=== PATIENT | female | born 1980 | race Caucasian/White ===

== ENCOUNTER 2016-09-08 20:41 | Inpatient (IN) | payer MEDICAID ==
[~2016-09-08] VITALS: Ht 175.3 cm; Wt 86.4 kg
[~2016-09-08 20:41] MED LIST: ZIPR40CA2 PO
[2016-09-08 21:40] LABS: BASOPHILS # (AUTO) 0.06 K/uL (0.00-0.20); BASOPHILS % (AUTO) 0.6 % (0.0-2.0); EOSINOPHILS # (AUTO) 0.27 K/uL (0.00-0.70); HEMATOCRIT 37.4 % (36-46); HEMOGLOBIN 12.3 g/dL (12.0-16.0); LYMPHOCYTES # (AUTO) 4.1 K/uL (1.0-4.8); LYMPHOCYTES % (AUTO) 39.5 % (22.0-44.0); MEAN CORPUSCULAR HEMOGLOBIN 25.3 pg (26.0-34.0); MEAN CORPUSCULAR VOLUME 77 fL (80-100); MONOCYTES # (AUTO) 0.5 K/uL (0.1-1.0); MONOCYTES % (AUTO) 4.4 % (2.0-9.0); NEUTROPHILS # (AUTO) 5.4 K/uL (1.8-7.7); NEUTROPHILS % (AUTO) 52.9 % (40.0-70.0); PLATELET COUNT (AUTO) 250 K/uL (150-450); RED BLOOD CELL COUNT(AUTO) 4.87 MIL/uL (4.00-5.20); RED CELL DISTRIBUTION WIDTH 17.3 % (11.5-14.5); WHITE BLOOD COUNT (AUTO) 10.3 K/uL (4.5-11.0)
[2016-09-08 21:46] LABS: ANION GAP 8 mmol/L (8-16); CALCIUM, TOTAL 8.7 mg/dL (8.8-10.5); CARBON DIOXIDE 28 mmol/L (22-29); CHLORIDE 103 mmol/L (98-107); CREATININE 0.81 mg/dL (0.60-1.30); GLOMERULAR FILTR. RATE CALC > 60 mL/min (>60); POTASSIUM 3.7 mmol/L (3.5-5.1); SODIUM SERUM 139 mmol/L (136-145); UREA NITROGEN, BLOOD 9 mg/dL (7-18)
[2016-09-08 21:52] LABS: ALANINE AMINOTRANSFERASE 22 U/L (12-78); ALBUMIN 3.4 g/dL (3.4-5.0); ASPARTATE AMINOTRANSFERASE 12 U/L (15-37); BILIRUBIN,TOTAL 0.2 mg/dL (0.1-1.0); TOTAL PROTEIN, SERUM 7.4 g/dL (6.4-8.2)
[2016-09-08 22:24] LABS: RBC MORPHOLOGY COMMENT ABNORMAL RBC MORPH
[2016-09-09] MEDS ORDERED: LORazepam 2 MG TABLET PO ONE (02:15)
[2016-09-09] MEDS ORDERED: HALOPERIDOL 5 MG TABLET PO PRN (03:15)
[2016-09-09] MEDS ORDERED: ZOLPIDEM TARTRATE 10 MG TABLET PO PRN (03:15)
[2016-09-09 05:31] VITALS: BP 101/59
[2016-09-09] MEDS: LORazepam 2 MG TABLET PO PRN (09:50)
[2016-09-09] MEDS ORDERED: INFLUENZA VIRUS VACCINE QVS 2016-17 (3YR+)/PF 60 MCG/0.5 ML SYRINGE IM ONE (10:15)
[2016-09-09 16:05] VITALS: BP 127/66
[2016-09-09] MEDS: ZIPRASIDONE HCL 40 MG CAPSULE PO SCH (16:14)
[2016-09-09] MEDS ORDERED: IBUPROFEN 400 MG TABLET PO PRN (18:15)
[2016-09-09] MEDS ORDERED: ACETAMINOPHEN 325 MG TABLET PO PRN (18:15)
[2016-09-10 06:28] VITALS: BP 104/60
[2016-09-10] MEDS: ZIPRASIDONE HCL 40 MG CAPSULE PO SCH ×3 (06:49→20:05)
[2016-09-10 08:16] VITALS: BP 100/63
[2016-09-10 09:07] LABS: CHOL/HDL RATIO 2.1 (3.9-5.7); THYROID STIMULATING HORMONE 0.54 uIU/mL (0.36-3.74)
[2016-09-10] MEDS: LORazepam 2 MG TABLET PO PRN (14:06)
[2016-09-10 16:17] VITALS: BP 109/52
[2016-09-11 06:10] VITALS: BP 108/63
[2016-09-11 08:32] VITALS: BP 113/58
[2016-09-11] MEDS: LORazepam 2 MG TABLET PO PRN ×2 (13:57→18:02)
[2016-09-11 16:12] VITALS: BP 125/69
[2016-09-11] MEDS: DOCUSATE SODIUM 100 MG CAPSULE PO SCH (17:00)
[2016-09-11] MEDS: ZIPRASIDONE HCL 40 MG CAPSULE PO SCH (20:18)
[2016-09-12 04:16] VITALS: BP 124/70
[2016-09-12 06:24] VITALS: BP 121/72
[2016-09-12] MEDS: LORazepam 2 MG TABLET PO PRN ×2 (06:26→12:18)
[2016-09-12] MEDS: DOCUSATE SODIUM 100 MG CAPSULE PO SCH (08:27)
[2016-09-12 08:49] VITALS: BP 111/70
[2016-09-12] MEDS ORDERED: NICOTINE 14 MG/24 HOUR PATCH TD SCH (09:00)
[2016-09-12] MEDS ORDERED: DSS100 PO (12:17)
== END 2016-09-12 14:32 | disposition home or self-care (01) | DRG 750 ==
LOC: EEVIPCON 20:44 → EMS 20:44 → B3A 09-09 03:45
PROVIDERS: ADMIT Psychiatry & Neurology Child & Adolescent Psychiatry; ATTEND Psychiatry & Neurology Child & Adolescent Psychiatry
DX: F25.1 Schizoaffective disorder, depressive type (principal); R45.851 Suicidal ideations; E83.51 Hypocalcemia; F41.9 Anxiety disorder, unspecified; F19.10 Other psychoactive substance abuse, uncomplicated; Z59.0 Homelessness; Z28.21 Immunization not carried out because of patient refusal
CPT/HCPCS: 83036; 84443; 99285; G0480

== ENCOUNTER 2016-09-25 18:58 | Emergency (ER) | payer MEDICAID ==
[~2016-09-25] VITALS: Ht 170.2 cm; Wt 86.4 kg
[~2016-09-25 18:58] MED LIST changes: +DSS100 PO
[2016-09-25 20:03] LABS: BASOPHILS % (AUTO) 0.4 % (0.0-2.0); EOSINOPHILS % (AUTO) 0.2 % (1.0-6.0); HEMATOCRIT 37.4 % (36-46); HEMOGLOBIN 12.1 g/dL (12.0-16.0); LYMPHOCYTES # (AUTO) 1.8 K/uL (1.0-4.8); LYMPHOCYTES % (AUTO) 16.5 % (22.0-44.0); MEAN CORPUSCULAR HEMOGLOBIN 25.1 pg (26.0-34.0); MEAN CORPUSCULAR HGB CONC 32.3 G/dL (31.0-37.0); MEAN CORPUSCULAR VOLUME 78 fL (80-100); MONOCYTES # (AUTO) 0.3 K/uL (0.1-1.0); MONOCYTES % (AUTO) 2.9 % (2.0-9.0); NEUTROPHILS # (AUTO) 8.7 K/uL (1.8-7.7); PLATELET COUNT (AUTO) 288 K/uL (150-450); RED BLOOD CELL COUNT(AUTO) 4.81 MIL/uL (4.00-5.20); RED CELL DISTRIBUTION WIDTH 16.6 % (11.5-14.5); WHITE BLOOD COUNT (AUTO) 10.9 K/uL (4.5-11.0)
[2016-09-25] MEDS ORDERED: LORazepam 2 MG TABLET PO ONE (20:15)
[2016-09-25] MEDS ORDERED: ZIPR80CA2 PO (20:18)
[2016-09-25 20:19] LABS: ANION GAP 8 mmol/L (8-16); CALCIUM, TOTAL 8.8 mg/dL (8.8-10.5); CARBON DIOXIDE 27 mmol/L (22-29); CHLORIDE 103 mmol/L (98-107); CREATININE 0.93 mg/dL (0.60-1.30); GLOMERULAR FILTR. RATE CALC > 60 mL/min (>60); POTASSIUM 3.8 mmol/L (3.5-5.1); SODIUM SERUM 138 mmol/L (136-145); UREA NITROGEN, BLOOD 8 mg/dL (7-18)
[2016-09-25 20:25] LABS: ALANINE AMINOTRANSFERASE 20 U/L (12-78); ALBUMIN 3.7 g/dL (3.4-5.0); ASPARTATE AMINOTRANSFERASE 14 U/L (15-37); BILIRUBIN,TOTAL 0.4 mg/dL (0.1-1.0); TOTAL PROTEIN, SERUM 7.9 g/dL (6.4-8.2)
[2016-09-25] MEDS ORDERED: HALOPERIDOL 5 MG TABLET PO ONE (22:30)
[2016-09-25 22:56] VITALS: BP 127/75
== END 2016-09-25 22:57 | disposition home or self-care (01) ==
LOC: EMS 19:00
DX: F25.9 Schizoaffective disorder, unspecified (principal); F32.9 Major depressive disorder, single episode, unspecified; F17.200 Nicotine dependence, unspecified, uncomplicated
CPT/HCPCS: 36415; 80053; 84703; 85025; 99284; 99406; G0480

== ENCOUNTER 2016-09-26 05:33 | Inpatient (IN) | payer MEDICAID ==
[~2016-09-26] VITALS: Ht 175.3 cm; Wt 85.5 kg
[~2016-09-26 05:33] MED LIST changes: +ZIPR80CA2 PO
[2016-09-26 08:13] LABS: BASOPHILS % (AUTO) 0.6 % (0.0-2.0); EOSINOPHILS % (AUTO) 2.8 % (1.0-6.0); HEMATOCRIT 35.9 % (36-46); HEMOGLOBIN 11.7 g/dL (12.0-16.0); LYMPHOCYTES # (AUTO) 2.1 K/uL (1.0-4.8); LYMPHOCYTES % (AUTO) 27.7 % (22.0-44.0); MEAN CORPUSCULAR HEMOGLOBIN 25.5 pg (26.0-34.0); MEAN CORPUSCULAR HGB CONC 32.7 G/dL (31.0-37.0); MEAN CORPUSCULAR VOLUME 78 fL (80-100); MONOCYTES # (AUTO) 0.4 K/uL (0.1-1.0); MONOCYTES % (AUTO) 5.2 % (2.0-9.0); NEUTROPHILS # (AUTO) 4.7 K/uL (1.8-7.7); NEUTROPHILS % (AUTO) 63.7 % (40.0-70.0); PLATELET COUNT (AUTO) 250 K/uL (150-450); RED BLOOD CELL COUNT(AUTO) 4.61 MIL/uL (4.00-5.20); RED CELL DISTRIBUTION WIDTH 16.7 % (11.5-14.5); WHITE BLOOD COUNT (AUTO) 7.4 K/uL (4.5-11.0)
[2016-09-26] MEDS ORDERED: HALOPERIDOL 5 MG TABLET PO PRN (08:15)
[2016-09-26] MEDS ORDERED: ZOLPIDEM TARTRATE 10 MG TABLET PO PRN (08:15)
[2016-09-26 08:23] LABS: ANION GAP 6 mmol/L (8-16); CALCIUM, TOTAL 8.3 mg/dL (8.8-10.5); CARBON DIOXIDE 28 mmol/L (22-29); CHLORIDE 105 mmol/L (98-107); CREATININE 0.86 mg/dL (0.60-1.30); GLOMERULAR FILTR. RATE CALC > 60 mL/min (>60); POTASSIUM 3.7 mmol/L (3.5-5.1); SODIUM SERUM 139 mmol/L (136-145); UREA NITROGEN, BLOOD 5 mg/dL (7-18)
[2016-09-26 08:28] LABS: ALANINE AMINOTRANSFERASE 20 U/L (12-78); ALBUMIN 3.3 g/dL (3.4-5.0); ASPARTATE AMINOTRANSFERASE 12 U/L (15-37); BILIRUBIN,TOTAL 0.5 mg/dL (0.1-1.0); TOTAL PROTEIN, SERUM 7.1 g/dL (6.4-8.2)
[2016-09-26 08:32] LABS: APPEARANCE,URINE CLOUDY (CLEAR); GLUCOSE, URINE (UA) NEGATIVE (NEGATIVE); KETONES,URINE NEGATIVE (NEGATIVE); LEUKOCYTE ESTERASE ,URINE LARGE (NEGATIVE); OCCULT BLOOD,URINE TRACE (NEGATIVE); PH,URINE 7.5 (5.0-8.0); PROTEIN,URINE TRACE (NEGATIVE)
[2016-09-26 08:33] LABS: ADD UA MICROSCOPIC YES
[2016-09-26 08:36] LABS: WBC,URINE >100 /HPF (0-5)
[2016-09-26 08:37] LABS: SQUAMOUS EPITHELIAL CELL,UR Rare /LPF (None Seen)
[2016-09-26] MEDS ORDERED: CefTRIAXone SODIUM 1 GM/VIAL IM ONE (09:15)
[2016-09-26] MEDS ORDERED: LIDOCAINE HCL/PF 1% 2 ML VIAL IM ONE (09:15)
[2016-09-26 12:41] VITALS: BP 138/67
[2016-09-26] MEDS ORDERED: INFLUENZA VIRUS VACCINE QVS 2016-17 (3YR+)/PF 60 MCG/0.5 ML SYRINGE IM ONE (13:30)
[2016-09-26 16:31] VITALS: BP 114/62
[2016-09-26] MEDS ORDERED: ACETAMINOPHEN 325 MG TABLET PO PRN (17:15)
[2016-09-26] MEDS ORDERED: IBUPROFEN 400 MG TABLET PO PRN (17:15)
[2016-09-26] MEDS: CIPROFLOXACIN HCL 500 MG TABLET PO SCH (18:04)
[2016-09-26] MEDS: LORazepam 2 MG TABLET PO PRN (20:47)
[2016-09-27 00:07] VITALS: BP 106/61
[2016-09-27 08:19] LABS: HEMOGLOBIN A1C 4.9 % (4.5-6.2)
[2016-09-27 08:40] LABS: CHOL/HDL RATIO 1.8 (3.9-5.7); THYROID STIMULATING HORMONE 0.72 uIU/mL (0.36-3.74)
[2016-09-27 08:51] VITALS: BP 102/67
[2016-09-27] MEDS: DOCUSATE SODIUM 100 MG CAPSULE PO SCH (09:15)
[2016-09-27] MEDS: CIPROFLOXACIN HCL 500 MG TABLET PO SCH ×2 (09:15→16:58)
[2016-09-27 16:35] VITALS: BP_SYST 100; BP_SYST 115; BP_DIAS 62; BP_DIAS 68
[2016-09-27] MEDS: ZIPRASIDONE HCL 40 MG CAPSULE PO SCH (16:58)
[2016-09-27] MEDS: LORazepam 2 MG TABLET PO PRN (17:27)
[2016-09-28 05:58] VITALS: BP 118/65
[2016-09-28] MEDS: ZIPRASIDONE HCL 40 MG CAPSULE PO SCH ×2 (07:00→16:36)
[2016-09-28 08:57] VITALS: BP 120/68
[2016-09-28] MEDS: CIPROFLOXACIN HCL 500 MG TABLET PO SCH ×2 (10:04→16:36)
[2016-09-28] MEDS: DOCUSATE SODIUM 100 MG CAPSULE PO SCH (10:04)
[2016-09-28] MEDS: LORazepam 2 MG TABLET PO PRN ×2 (13:52→18:39)
[2016-09-28 16:30] VITALS: BP 122/75
[2016-09-29 04:26] VITALS: BP 116/72
[2016-09-29] MEDS: LORazepam 2 MG TABLET PO PRN (04:29)
[2016-09-29] MEDS: ZIPRASIDONE HCL 40 MG CAPSULE PO SCH (06:40)
[2016-09-29 08:39] VITALS: BP 141/84
[2016-09-29] MEDS: CIPROFLOXACIN HCL 500 MG TABLET PO SCH (09:38)
[2016-09-29] MEDS: DOCUSATE SODIUM 100 MG CAPSULE PO SCH (09:38)
[2016-09-29 11:09] VITALS: BP 121/71
[2016-09-29] MEDS ORDERED: CIPR-278 PO (12:30)
[2016-09-29] MEDS ORDERED: ZIPR40CA2 PO (12:30)
== END 2016-09-29 14:00 | disposition home or self-care (01) | DRG 753 ==
LOC: EMS 05:34 → EEVIPCON 05:34 → B2S 09:23
PROVIDERS: ATTEND Psychiatry & Neurology Child & Adolescent Psychiatry
DX: F31.4 Bipolar disorder, current episode depressed, severe, without psychotic features (principal); R45.851 Suicidal ideations; N39.0 Urinary tract infection, site not specified; F12.90 Cannabis use, unspecified, uncomplicated; F10.20 Alcohol dependence, uncomplicated; F15.90 Other stimulant use, unspecified, uncomplicated; Z71.51 Drug abuse counseling and surveillance of drug abuser; Z28.21 Immunization not carried out because of patient refusal; Z79.899 Other long term (current) drug therapy
CPT/HCPCS: 83036; 84443; 87086; 96372; 99285; G0480; J0696; J3490

== ENCOUNTER 2016-09-30 15:56 | Emergency (ER) | payer MEDICAID ==
[~2016-09-30] VITALS: Ht 172.7 cm; Wt 79.5 kg
[~2016-09-30 15:56] MED LIST changes: +CIPR-278 PO; -ZIPR80CA2 PO
[2016-09-30 20:12] LABS: BASOPHILS % (AUTO) 1.7 % (0.0-2.0); EOSINOPHILS % (AUTO) 2.9 % (1.0-6.0); HEMATOCRIT 36.3 % (36-46); LYMPHOCYTES # (AUTO) 3.2 K/uL (1.0-4.8); LYMPHOCYTES % (AUTO) 33.3 % (22.0-44.0); MEAN CORPUSCULAR HEMOGLOBIN 25.7 pg (26.0-34.0); MEAN CORPUSCULAR VOLUME 78 fL (80-100); MONOCYTES # (AUTO) 0.4 K/uL (0.1-1.0); MONOCYTES % (AUTO) 4.3 % (2.0-9.0); NEUTROPHILS # (AUTO) 5.5 K/uL (1.8-7.7); NEUTROPHILS % (AUTO) 57.8 % (40.0-70.0); PLATELET COUNT (AUTO) 253 K/uL (150-450); RED BLOOD CELL COUNT(AUTO) 4.67 MIL/uL (4.00-5.20); RED CELL DISTRIBUTION WIDTH 16.8 % (11.5-14.5); WHITE BLOOD COUNT (AUTO) 9.6 K/uL (4.5-11.0)
[2016-09-30 20:23] LABS: ANION GAP 7 mmol/L (8-16); CALCIUM, TOTAL 9.1 mg/dL (8.8-10.5); CARBON DIOXIDE 29 mmol/L (22-29); CHLORIDE 105 mmol/L (98-107); CREATININE 0.74 mg/dL (0.60-1.30); GLOMERULAR FILTR. RATE CALC > 60 mL/min (>60); POTASSIUM 4.4 mmol/L (3.5-5.1); SODIUM SERUM 141 mmol/L (136-145); UREA NITROGEN, BLOOD 8 mg/dL (7-18)
[2016-09-30 20:29] LABS: ALANINE AMINOTRANSFERASE 27 U/L (12-78); ALBUMIN 3.7 g/dL (3.4-5.0); ASPARTATE AMINOTRANSFERASE 16 U/L (15-37); BILIRUBIN,TOTAL 0.4 mg/dL (0.1-1.0); TOTAL PROTEIN, SERUM 7.5 g/dL (6.4-8.2)
[2016-09-30] MEDS ORDERED: LORazepam 2 MG TABLET PO ONE (23:30)
[2016-09-30] MEDS ORDERED: HALOPERIDOL 5 MG TABLET PO ONE (23:30)
[2016-10-01 02:09] VITALS: BP 121/80
== END 2016-10-01 02:13 | disposition home or self-care (01) ==
LOC: EMS 15:58
DX: F32.9 Major depressive disorder, single episode, unspecified (principal)
CPT/HCPCS: 36415; 80053; 80307; 85025; 99284; G0480

== ENCOUNTER 2016-10-17 18:17 | Inpatient (IN) | payer MEDICAID ==
[~2016-10-17] VITALS: Ht 175.3 cm; Wt 87.1 kg
[2016-10-17] MEDS ORDERED: HALOPERIDOL 5 MG TABLET PO PRN (18:45)
[2016-10-17 18:55] VITALS: BP 122/78
[2016-10-17] MEDS ORDERED: INFLUENZA VIRUS VACCINE QVS 2016-17 (3YR+)/PF 60 MCG/0.5 ML SYRINGE IM ONE (20:00)
[2016-10-18 04:39] VITALS: BP 104/70
[2016-10-18 07:39] LABS: BASOPHILS % (AUTO) 0.4 % (0.0-2.0); EOSINOPHILS % (AUTO) 3.1 % (1.0-6.0); HEMATOCRIT 36.1 % (36-46); HEMOGLOBIN 11.8 g/dL (12.0-16.0); LYMPHOCYTES # (AUTO) 3.8 K/uL (1.0-4.8); LYMPHOCYTES % (AUTO) 47.2 % (22.0-44.0); MEAN CORPUSCULAR HEMOGLOBIN 25.5 pg (26.0-34.0); MEAN CORPUSCULAR HGB CONC 32.8 G/dL (31.0-37.0); MEAN CORPUSCULAR VOLUME 78 fL (80-100); MONOCYTES # (AUTO) 0.3 K/uL (0.1-1.0); MONOCYTES % (AUTO) 4.3 % (2.0-9.0); NEUTROPHILS # (AUTO) 3.6 K/uL (1.8-7.7); PLATELET COUNT (AUTO) 235 K/uL (150-450); RED BLOOD CELL COUNT(AUTO) 4.64 MIL/uL (4.00-5.20); RED CELL DISTRIBUTION WIDTH 16.7 % (11.5-14.5)
[2016-10-18 08:00] VITALS: BP 115/60
[2016-10-18 08:13] LABS: ALANINE AMINOTRANSFERASE 17 U/L (12-78); ALBUMIN 3.3 g/dL (3.4-5.0); ANION GAP 7 mmol/L (8-16); ASPARTATE AMINOTRANSFERASE 12 U/L (15-37); BILIRUBIN,TOTAL 0.4 mg/dL (0.1-1.0); CALCIUM, TOTAL 8.7 mg/dL (8.8-10.5); CARBON DIOXIDE 26 mmol/L (22-29); CHLORIDE 107 mmol/L (98-107); CHOL/HDL RATIO 1.9 (3.9-5.7); CREATININE 0.62 mg/dL (0.60-1.30); GLOMERULAR FILTR. RATE CALC > 60 mL/min (>60); POTASSIUM 4.2 mmol/L (3.5-5.1); SODIUM SERUM 140 mmol/L (136-145); TOTAL PROTEIN, SERUM 6.8 g/dL (6.4-8.2); UREA NITROGEN, BLOOD 7 mg/dL (7-18)
[2016-10-18] MEDS: NICOTINE 21 MG/24 HOUR PATCH TD SCH (08:21)
[2016-10-18] MEDS: LORazepam 2 MG TABLET PO PRN ×2 (08:21→14:50)
[2016-10-18] MEDS ORDERED: PHENAZOPYRIDINE HCL 100 MG TABLET PO PRN (08:30)
[2016-10-18] MEDS ORDERED: ACETAMINOPHEN 650 MG/20.3 ML SOLUTION UDCUP PO PRN (08:30)
[2016-10-18 08:32] LABS: THYROID STIMULATING HORMONE 0.73 uIU/mL (0.36-3.74)
[2016-10-18 16:25] VITALS: BP 125/72
[2016-10-18] MEDS: ZIPRASIDONE HCL 40 MG CAPSULE PO SCH (17:04)
[2016-10-19 04:53] VITALS: BP 140/75
[2016-10-19] MEDS: ZIPRASIDONE HCL 40 MG CAPSULE PO SCH ×2 (06:35→16:51)
[2016-10-19] MEDS: IBUPROFEN 600 MG TABLET PO PRN (06:36)
[2016-10-19 08:02] LABS: APPEARANCE,URINE CLOUDY (CLEAR); GLUCOSE, URINE (UA) NEGATIVE (NEGATIVE); KETONES,URINE NEGATIVE (NEGATIVE); LEUKOCYTE ESTERASE ,URINE MODERATE (NEGATIVE); OCCULT BLOOD,URINE NEGATIVE (NEGATIVE); PH,URINE 6.5 (5.0-8.0); PROTEIN,URINE NEGATIVE (NEGATIVE)
[2016-10-19 08:38] VITALS: BP 128/65
[2016-10-19 08:45] LABS: ADD UA MICROSCOPIC YES
[2016-10-19 09:03] LABS: RBC,URINE None Seen /HPF (0-2); SQUAMOUS EPITHELIAL CELL,UR Few /LPF (None Seen)
[2016-10-19] MEDS: NICOTINE 21 MG/24 HOUR PATCH TD SCH (09:43)
[2016-10-19] MEDS: DOCUSATE SODIUM 100 MG CAPSULE PO PRN (13:12)
[2016-10-19] MEDS: LORazepam 2 MG TABLET PO PRN (13:12)
[2016-10-19 16:29] VITALS: BP 114/68
[2016-10-19] MEDS: ZOLPIDEM TARTRATE 10 MG TABLET PO PRN (21:51)
[2016-10-20 00:44] VITALS: BP 118/67
[2016-10-20] MEDS: ZIPRASIDONE HCL 40 MG CAPSULE PO SCH ×2 (06:38→16:23)
[2016-10-20 08:15] VITALS: BP 106/71
[2016-10-20] MEDS: NICOTINE 21 MG/24 HOUR PATCH TD SCH (09:24)
[2016-10-20] MEDS: LORazepam 2 MG TABLET PO PRN ×2 (11:19→17:00)
[2016-10-20] MEDS: DOCUSATE SODIUM 100 MG CAPSULE PO PRN (11:19)
[2016-10-20 16:05] VITALS: BP 109/68
[2016-10-21] MEDS: ZOLPIDEM TARTRATE 10 MG TABLET PO PRN (02:05)
[2016-10-21 04:30] VITALS: BP 111/63
[2016-10-21] MEDS: IBUPROFEN 600 MG TABLET PO PRN ×2 (05:13→09:49)
[2016-10-21] MEDS: ZIPRASIDONE HCL 40 MG CAPSULE PO SCH ×2 (06:14→16:26)
[2016-10-21 08:52] VITALS: BP 133/80
[2016-10-21] MEDS: LORazepam 2 MG TABLET PO PRN ×2 (09:49→16:26)
[2016-10-21] MEDS: NICOTINE 21 MG/24 HOUR PATCH TD SCH (09:49)
[2016-10-21 16:00] VITALS: BP 127/76
[2016-10-21] MEDS: DOCUSATE SODIUM 100 MG CAPSULE PO PRN (16:26)
[2016-10-21] MEDS ORDERED: ACETAMINOPHEN 325 MG TABLET PO PRN (21:15)
[2016-10-22 04:15] VITALS: BP 103/65
[2016-10-22] MEDS: LORazepam 2 MG TABLET PO PRN (04:15)
[2016-10-22] MEDS ORDERED: NICO21T TD (05:24)
[2016-10-22] MEDS: ZIPRASIDONE HCL 40 MG CAPSULE PO SCH (06:49)
== END 2016-10-22 07:00 | disposition home or self-care (01) | DRG 750 ==
LOC: EDSTATUS 18:55 → B2S 19:07
PROVIDERS: ADMIT Psychiatry & Neurology Psychiatry; ATTEND Psychiatry & Neurology Child & Adolescent Psychiatry
PROC: 3E0234Z Introduction of Serum, Toxoid and Vaccine into Muscle, Percutaneous Approach (ICD-10-PCS; principal; 2016-10-17)
DX: F25.1 Schizoaffective disorder, depressive type (principal); F22 Delusional disorders; D64.9 Anemia, unspecified; K59.00 Constipation, unspecified; F12.90 Cannabis use, unspecified, uncomplicated; F31.9 Bipolar disorder, unspecified; Z59.0 Homelessness; Z23 Encounter for immunization
CPT/HCPCS: 80307; 84436; 84439; 84443; 87081; 87086; 90471